=== PATIENT | female | born 1995 | race Caucasian/White ===

== ENCOUNTER 2021-04-28 17:38 | Emergency (ER) | payer OTHER ==
[~2021-04-28] VITALS: Ht 157.5 cm; Wt 69.0 kg
[~2021-04-28 17:38] MED LIST: IBUPROFEN 800800 M1 PO; ROBAXIN 750 MG750 M1 PO
[2021-04-28] MEDS ORDERED: CEPHALEXIN500 MG PO (18:36)
[2021-04-28] MEDS ORDERED: BACTRIM DS TAB1 EACH PO (18:36)
[2021-04-28 18:41] VITALS: BP 147/83
== END 2021-04-28 18:42 | disposition home or self-care (01) ==
LOC: M.ERS 17:38
DX: L02.01 Cutaneous abscess of face (principal)